=== PATIENT | female | born 1970 | race African-American/Black ===

== ENCOUNTER → 2017-01-14 | Outpatient (CLI) | payer OTHER ==
[~2017-01-14] MED LIST: ACETAMINOPHEN325 M1 PO; ALEVE220 M1 PO; CITRATE OF MAG296 ML PO; IBUPROFEN 800800 MG PO
== END ==
LOC: RAD 09:13
DX: N64.59 Other signs and symptoms in breast (principal)

== ENCOUNTER → 2018-05-29 | Outpatient (CLI) | payer BC | LOC: BC 12:59 | DX: Z12.31 Encounter for screening mammogram for malignant neoplasm of breast (principal) ==

== ENCOUNTER → 2018-07-20 | Outpatient (CLI) | payer BC | LOC: ULTRA 01:37 | DX: N60.01 Solitary cyst of right breast (principal); N88.8 Other specified noninflammatory disorders of cervix uteri; N60.41 Mammary duct ectasia of right breast ==

== ENCOUNTER → 2019-05-21 | Outpatient (CLI) | payer BC | LOC: ULTRA 15:02 | DX: D25.9 Leiomyoma of uterus, unspecified (principal) ==

== ENCOUNTER → 2020-04-11 | Outpatient (CLI) | payer BC | LOC: LAB 09:15 | PROVIDERS: ATTEND Nurse Practitioner | DX: U07.1 COVID-19 (principal) ==